=== PATIENT | male | born 1975 | race Caucasian/White ===

== ENCOUNTER 2024-07-11 10:55 | Inpatient (IN) | payer OTHER, SELFPAY ==
[~2024-07-11 10:55] MED LIST: Iopamidol 370 76% 100 ML VIAL ONE
[2024-07-11] MEDS ORDERED: NOREPINEPHRINE 8 MG/250 ML-D5W 250 ML ONE (11:02)
[2024-07-11] MEDS ORDERED: Ondansetron PF 4 MG/2 ML Vial ONE (11:35)
[2024-07-11] MEDS ORDERED: Morphine 4 MG/ML VIAL ONE (11:35)
[2024-07-11] MEDS ORDERED: PHENYLEPHRINE-NS 100 MCG/ML 10 ML SYRINGE ONE (11:40)
[2024-07-11 11:50] LABS: #Basophils 0.03 10x3/uL (0.0-0.2); #Eosinophils Less than 0.03 10x3/uL (0.0-0.7); %Basophils 0.2 % (0.0-1.0); %Lymphocytes 13.3 % (21.0-51.0); %Monocytes 8.4 % (0.0-10.0); %Neutrophils 77.7 % (42.0-75.0); Hematocrit 38.7 % (42.0-52.0); Mean Corpuscular HGB CONC 33.6 g/dL (32.0-36.0); Mean Corpuscular Hemoglobin 29.3 pg (27.0-31.0); Mean Corpuscular Volume 87.4 fL (78.0-98.0); Mean Platelet Volume 9.6 fL (7.4-10.4); Platelet Count 266 10x3/uL (130-400); RBC Distribution Width 13.1 % (11.5-14.5); Red Blood Cell (RBC) Count 4.43 mill/uL (4.70-6.10)
[2024-07-11] MEDS ORDERED: Vasopressin 20 UNITS/ML VIAL ONE (11:59)
[2024-07-11] MEDS ORDERED: EPINEPHrine 1 MG/10 ML Abboject SYRINGE ONE (12:00)
[2024-07-11] MEDS ORDERED: Adenosine 6 mg (2 mL) VIAL ONE (12:06)
[2024-07-11 12:10] LABS: INR-International Normal Ratio 1.3; Prothrombin Time 16.1 sec (12.0-14.7)
[2024-07-11] MEDS ORDERED: Midazolam HCl 2 mg/2 ml Vial ONE (12:16)
[2024-07-11 12:25] LABS: ALT (SGPT) 110 U/L (8-55); AST (SGOT) 134 U/L (5-34); Albumin 3.2 g/dL (3.5-5.0); Alkaline Phosphatase 74 U/L (40-110); Anion Gap 17 mmol/L (10-20); BUN (Urea Nitrogen) 21 mg/dL (8.9-20.6); Bilirubin, Total 0.9 mg/dL (0.2-1.2); Calc. Creatinine Clearance 0 mL/min (70-130); Calcium 8.8 mg/dL (7.8-10.44); Carbon Dioxide 22 mmol/L (22-29); Chloride 102 mmol/L (98-107); Estimated GFR 58; Globulin 3.5 g/dL (2.4-3.5); Glucose 143 mg/dL (70-105); Lipase 58 U/L (8-78); Potassium 4.3 mmol/L (3.5-5.1); Protein, Total 6.7 g/dL (6.0-8.3); Sodium 137 mmol/L (136-145)
[2024-07-11] MEDS ORDERED: Rocuronium Bromide 10 MG/ML (10ML VIAL) ONE (12:25)
[2024-07-11] MEDS ORDERED: Etomidate 40 MG (20 mL) VIAL ONE (12:25)
[2024-07-11] MEDS ORDERED: fentaNYL 50 mcg/mL 1 mL Vial ONE (12:26)
[2024-07-11] MEDS ORDERED: Propofol 1,000 MG/100 ML VIAL IV ONE (12:37)
[2024-07-11 12:43] LABS: Troponin I 11.082 ng/mL (< 0.028)
[2024-07-11 12:53] LABS: PTT 124.7 sec (22.9-36.1)
[2024-07-11] MEDS ORDERED: Heparin 10,000 UNITS/ 10 ML VIAL ONE (12:57)
[2024-07-11] MEDS ORDERED: Nitroglycerin 50 MG/250 ML BOT 250 ML ONE (12:57)
[2024-07-11] MEDS ORDERED: TICAGRELOR 90 MG TABLET ONE (13:07)
[2024-07-11] MEDS ORDERED: Nitroglycerin 0.4 MG TAB (25 Tab Bottle) SL PRN (13:26)
[2024-07-11 13:58] LABS: Base Excess (BEa) -11.7 mEq/L (-2.0 to +3.0); CO2 Tension 28.5 mmHg (35.0-45.0); Carboxyhemoglobin (COHb) 0.6 gm% (0.0-3.0); Hematocrit-ABG 42 % (42.0-52.0); Hemoglobin (Hb) 14.4 g/dL (14.0-18.0); pH, Arterial 7.287 (7.35-7.45)
[2024-07-11 13:59] LABS: ALV-art Gradient 273.175 mmHg (0-20); Actual Bicarbonate (HCO3a) 13.3 mEq/L (22-28); Puncture Site Arterial Line
[2024-07-11] MEDS ORDERED: Acetaminophen 650 MG Suppository PR PRN (14:28)
[2024-07-11] MEDS ORDERED: Bisacodyl 10 MG SUPP PR PRN (14:28)
[2024-07-11] MEDS ORDERED: Bisacodyl 5 MG TAB PO PRN (14:28)
[2024-07-11] MEDS ORDERED: Senokot S 8.6-50 MG TAB PO PRN (14:28)
[2024-07-11] MEDS ORDERED: Verapamil 5 MG/2 ML VIAL ONE (14:58)
[2024-07-11] MEDS ORDERED: Ventilator Sedation Protocol 1 EACH FS SCH (15:00)
[2024-07-11] MEDS ORDERED: Propofol BOLUS 1,000 MG/100 ML VIAL IV PRN (15:00)
[2024-07-11] MEDS ORDERED: Heparin 5,000 UNITS/ML VIAL SC SCH (15:00)
[2024-07-11 15:02] LABS: Hematocrit 43.2 % (42.0-52.0); Hemoglobin 14.5 g/dL (14.0-18.0); Platelet Count 262 10x3/uL (130-400)
[2024-07-11 15:02] LABS: #Basophils 0.03 10x3/uL (0.0-0.2); #Eosinophils Less than 0.03 10x3/uL (0.0-0.7); %Basophils 0.2 % (0.0-1.0); %Lymphocytes 8.9 % (21.0-51.0); %Monocytes 6.7 % (0.0-10.0); %Neutrophils 83.6 % (42.0-75.0); Hematocrit 43.3 % (42.0-52.0); Hemoglobin 14.1 g/dL (14.0-18.0); Mean Corpuscular HGB CONC 32.6 g/dL (32.0-36.0); Mean Corpuscular Volume 88.9 fL (78.0-98.0); Mean Platelet Volume 9.6 fL (7.4-10.4); Platelet Count 260 10x3/uL (130-400); RBC Distribution Width 13.2 % (11.5-14.5); Red Blood Cell (RBC) Count 4.87 mill/uL (4.70-6.10)
[2024-07-11] MEDS: Sodium Bicarbonate 150 MEQ in Dextrose 5% in Water 1,000 ML IV SCH (15:05)
[2024-07-11] MEDS: Sodium Bicarb 50 mEq/50 ML VIAL IVP SCH (15:05)
[2024-07-11] MEDS ORDERED: Fentanyl BOLUS 250 ML IVPB PRN (15:15)
[2024-07-11] MEDS ORDERED: DISCONTINUE PREVIOUS NARCOTIC PAIN MEDICATIONS AND BENZODIAZEPINES FS SCH (15:15)
[2024-07-11] MEDS ORDERED: Morphine 2 MG/ML VIAL SLOW IVP PRN (15:15)
[2024-07-11] MEDS ORDERED: Lorazepam 2 MG/ML VIAL SLOW IVP PRN (15:15)
[2024-07-11 15:20] LABS: INR-International Normal Ratio 1.4; Prothrombin Time 17.1 sec (12.0-14.7)
[2024-07-11 15:21] LABS: PTT 70.3 sec (22.9-36.1)
[2024-07-11 15:28] LABS: Lactic Acid 4.82 mmol/L (0.5-2.2)
[2024-07-11 15:38] VITALS: BMI 28.3
[2024-07-11 15:57] LABS: ALT (SGPT) 205 U/L (8-55); AST (SGOT) 263 U/L (5-34); Albumin 2.9 g/dL (3.5-5.0); Alkaline Phosphatase 75 U/L (40-110); Anion Gap 17 mmol/L (10-20); BUN (Urea Nitrogen) 22 mg/dL (8.9-20.6); Bilirubin, Total 1.5 mg/dL (0.2-1.2); Calc. Creatinine Clearance 69 mL/min (70-130); Carbon Dioxide 19 mmol/L (22-29); Chloride 102 mmol/L (98-107); Estimated GFR 55; Globulin 3.4 g/dL (2.4-3.5); Glucose 218 mg/dL (70-105); Magnesium 2.2 mg/dL (1.6-2.6); Potassium 6.9 mmol/L (3.5-5.1); Protein, Total 6.3 g/dL (6.0-8.3); Sodium 131 mmol/L (136-145)
[2024-07-11] MEDS: Sodium Bicarb 50 MEQ/50 ML Abboject 8.4% SYRINGE IVP SCH (16:54)
[2024-07-11 16:58] LABS: Troponin I 26.669 ng/mL (< 0.028)
[2024-07-11] MEDS: Heparin 25,000 units/D5W 500 ML IVPB SCH (17:01)
[2024-07-11 17:19] LABS: Potassium 6.2 mmol/L (3.5-5.1)
[2024-07-11 17:20] LABS: Troponin I 37.997 ng/mL (< 0.028)
[2024-07-11] MEDS: Acetaminophen 325 MG TAB PO PRN (17:21)
[2024-07-11 17:23] VITALS: TEMP 101.3
[2024-07-11] MEDS: Fentanyl CADD 100 ML IV SCH (17:25)
[2024-07-11] MEDS: CALCIUM GLUC 1 GM/NS 50 ML 1 GM in Premix 1 BAG IVPB SCH (17:51)
[2024-07-11] MEDS: LOKELMA 10 GM PACKET PER TUBE SCH (18:02)
[2024-07-11] MEDS: Dextrose 50% Abboject 50 ML SYRINGE SLOW IVP PRN (18:02)
[2024-07-11] MEDS: Insulin Regular, Human 100 UNIT/ML 10 ML VIAL IVP SCH (18:06)
[2024-07-11] MEDS: Metoprolol Tartrate 25 MG TAB PO SCH (19:43)
[2024-07-11] MEDS: NOREPINEPHRINE 8 MG/250 ML-D5W 250 ML IVPB SCH (19:57)
[2024-07-11] MEDS: Propofol 1,000 MG/100 ML VIAL IV PRN (20:00)
[2024-07-11] MEDS ORDERED: FLU (Fluarix Triv) TS24-25(6MOS UP)/PF 45 MCG/0.5 ML Syringe IM ONE (20:00)
[2024-07-11] MEDS: Atorvastatin Calcium 40 MG TAB PO SCH (20:00)
[2024-07-11] MEDS: TICAGRELOR 90 MG TABLET PO SCH (20:01)
[2024-07-11] MEDS: Famotidine/PF 20 mg/2ml Vial SLOW IVP SCH (20:01)
[2024-07-11 20:11] LABS: Anion Gap 18 mmol/L (10-20); BUN (Urea Nitrogen) 27 mg/dL (8.9-20.6); Calc. Creatinine Clearance 69 mL/min (70-130); Calcium 8.1 mg/dL (7.8-10.44); Carbon Dioxide 16 mmol/L (22-29); Chloride 104 mmol/L (98-107); Estimated GFR 55; Glucose 306 mg/dL (70-105); Potassium 4.7 mmol/L (3.5-5.1); Sodium 133 mmol/L (136-145)
[2024-07-11] MEDS ORDERED: Glucagon 1 MG/ML KIT IM PRN (21:13)
[2024-07-11] MEDS ORDERED: Insulin Lispro 100 UNIT/ML 10 ML VIAL SC PRN ×2 (21:13)
[2024-07-11] MEDS ORDERED: Ipratropium/Albuterol 3 ML NEB NEB PRN (21:13)
[2024-07-11] MEDS ORDERED: Sodium Bicarbonate 150 MEQ in Sterile Water 1,000 ML IVP SCH (21:30)
[2024-07-11] MEDS: Ipratropium/Albuterol 3 ML NEB NEB SCH (21:49)
[2024-07-11] MEDS: Sodium Bicarbonate 150 MEQ in Sterile Water 1,000 ML IV SCH (22:28)
[2024-07-11] MEDS: Piperacillin/Tazobactam 3.375 GM in Sodium Chloride 0.9% 100 ML IVPB SCH ×2 (22:28→23:37)
[2024-07-11 23:53] LABS: Bacteria/HPF None Seen HPF (None Seen); Bilirubin Negative (Negative); Blood, Urine 2+ (Negative); CAUTI Indications for Culture Fever or rigors; Clarity Turbid (Clear); Glucose, Urine (Dipstick) Normal (Negative); Ketone, Urine 10 mg/dL (Negative); Leukocyte Negative Leu/uL (Negative); Nitrite Negative (Negative); Protein, Urine (Dipstick) 100 mg/dL (Neg-Trace); Squamous Epithelial None Seen HPF (0-3); Urobilinogen 3 mg/dL (Less than 2); pH, Urine 5.5 (5.0-9.0)
[2024-07-11 23:58] LABS: Urine Culture Reflex No No
[2024-07-12] LABS: Amphetamine Not Detected (NotDetected); Barbiturates Screen Not Detected (NotDetected); Benzodiazepine Screen Not Detected (NotDetected); Cocaine Metabolite Screen Not Detected (NotDetected); Methadone Not Detected (NotDetected); Methamphetamine Not Detected (NotDetected); Opiate Screen Detected (NotDetected); Oxycodone Screen Detected (NotDetected); Phencyclidine (PCP) Not Detected (NotDetected); THC/Cannabinoid Screen Not Detected (NotDetected); Tricyclic Screen Detected (NotDetected)
[2024-07-12 00:03] LABS: Specific Gravity, Urine 1.055 (1.002-1.036)
[2024-07-12] MEDS: Heparin 10,000 UNITS/ 10 ML VIAL SLOW IVP SCH (00:15)
[2024-07-12] MEDS ORDERED: Ipratropium/Albuterol 3 ML NEB NEB SCH (01:00)
[2024-07-12] MEDS: Piperacillin/Tazobactam 3.375 GM in Sodium Chloride 0.9% 100 ML IVPB SCH (01:05)
[2024-07-12] MEDS: Vasopressin In 0.9 % NaCl 40 UNIT in Premix 1 BAG IV SCH (02:54)
[2024-07-12 04:47] LABS: Hematocrit 41.6 % (42.0-52.0); Hemoglobin 14.4 g/dL (14.0-18.0); Mean Corpuscular HGB CONC 34.6 g/dL (32.0-36.0); Mean Corpuscular Hemoglobin 29.3 pg (27.0-31.0); Mean Corpuscular Volume 84.6 fL (78.0-98.0); Mean Platelet Volume 10.2 fL (7.4-10.4); Platelet Count 205 10x3/uL (130-400); RBC Distribution Width 13.2 % (11.5-14.5); Red Blood Cell (RBC) Count 4.92 mill/uL (4.70-6.10)
[2024-07-12 05:03] LABS: Lactic Acid 9.83 mmol/L (0.5-2.2)
[2024-07-12 05:07] LABS: Hemoglobin A1c 5.8 % (4.0-6.0)
[2024-07-12 05:08] LABS: Albumin 2.5 g/dL (3.5-5.0); Alkaline Phosphatase 85 U/L (40-110); Anion Gap 25 mmol/L (10-20); BUN (Urea Nitrogen) 30 mg/dL (8.9-20.6); Bilirubin, Total 2.1 mg/dL (0.2-1.2); Calc. Creatinine Clearance 43 mL/min (70-130); Calcium 7.9 mg/dL (7.8-10.44); Carbon Dioxide 13 mmol/L (22-29); Cardiac Risk 13.7 (Less than 4.5); Chloride 100 mmol/L (98-107); Cholesterol 151 mg/dl (< 200 Desired); Estimated GFR 31; Globulin 3.6 g/dL (2.4-3.5); Glucose 123 mg/dL (70-105); HDL Cholesterol 11 mg/dL (>60 Neg Risk); LDL Cholesterol, Calculated 106 mg/dL; Magnesium 2.5 mg/dL (1.6-2.6); Potassium 5.4 mmol/L (3.5-5.1); Protein, Total 6.1 g/dL (6.0-8.3); Sodium 133 mmol/L (136-145); Triglycerides 171 mg/dL (Less than 150)
[2024-07-12 05:28] LABS: ALT (SGPT) 8309 U/L (8-55)
[2024-07-12] MEDS ORDERED: Vancomycin 1.75 GM in Sodium Chloride 0.9% 500 ML IVPB SCH (05:30)
[2024-07-12 05:33] LABS: AST (SGOT) Greater than 4202 U/L (5-34)
[2024-07-12] MEDS: Vancomycin (BATCH) 1.75 GM in Premix 1 BAG IVPB SCH (05:39)
[2024-07-12 05:42] LABS: Base Excess (BEa) -10.3 mEq/L (-2.0 to +3.0); CO2 Tension 25.2 mmHg (35.0-45.0); Calcium, Ionized (arterial) 0.99 mmol/L (1.12-1.30); Carboxyhemoglobin (COHb) 0.3 gm% (0.0-3.0); Hematocrit-ABG 44 % (42.0-52.0); O2 Tension (PaO2), arterial 102.2 mmHg (80.0-100.0); Potassium - ABG Lab 5.23 mmol/L (3.70-5.30); pH, Arterial 7.343 (7.35-7.45)
[2024-07-12] MEDS: Albumin 25% 25 GM (100 mL) BOT IVPB SCH (05:42)
[2024-07-12 05:43] LABS: Actual Bicarbonate (HCO3a) 13.4 mEq/L (22-28); Puncture Site LINE
[2024-07-12] MEDS: methylPREDNISolone Sod Succ/PF 125 MG/2 ML VIAL IVP SCH (05:59)
[2024-07-12] MEDS: Meropenem 1 GM in Sodium Chloride 0.9% 100 ML IVPB SCH ×3 (06:09→13:49)
[2024-07-12 06:48] LABS: Band 6 % (5-11); Lymphocytes 4 % (21-51); Monocytes 5 % (0-10); Neutrophil 74 % (42-75); Platelet Adequacy Comment Platelets Normal; Polychromasia SLIGHT = 2-3 cells HPF (0-2); Reactive Lymphocytes 11 % (0-10); Smudge Cells 33.3 %
[2024-07-12] MEDS: Sodium Bicarbonate 150 MEQ in Sterile Water 1,000 ML IV SCH (07:05)
[2024-07-12 07:41] LABS: Anion Gap 30 mmol/L (10-20); BUN (Urea Nitrogen) 31 mg/dL (8.9-20.6); Calc. Creatinine Clearance 43 mL/min (70-130); Calcium 7.6 mg/dL (7.8-10.44); Carbon Dioxide 11 mmol/L (22-29); Chloride 99 mmol/L (98-107); Estimated GFR 29; Glucose 120 mg/dL (70-105); Potassium 5.4 mmol/L (3.5-5.1); Sodium 135 mmol/L (136-145)
[2024-07-12] MEDS: Lisinopril 2.5 MG TAB PO SCH (08:31)
[2024-07-12 08:32] VITALS: BP 116/60
[2024-07-12] MEDS: TICAGRELOR 90 MG TABLET PER TUBE SCH (08:39)
[2024-07-12] MEDS: Aspirin Chewable 81 MG TAB PER TUBE SCH (08:51)
[2024-07-12] MEDS: Lisinopril 2.5 MG TAB PER TUBE SCH (08:52)
[2024-07-12] MEDS ORDERED: Aspirin 81 mg Enteric Coated Tablet PO SCH (09:00)
[2024-07-12] MEDS ORDERED: DOBUTamine 500 mg/250 ml 250 ML IVPB SCH (09:45)
[2024-07-12] MEDS: Sodium Chloride 0.9% 1,000 ML IV SCH (10:32)
[2024-07-12 11:29] LABS: Troponin I 183.725 ng/mL (< 0.028)
[2024-07-12] MEDS: Sodium Chloride 0.9% 500 ML IV SCH (13:51)
[2024-07-12 15:15] LABS: Critical Call Chem Troponin I DECREASED; Troponin I 121.183 ng/mL (< 0.028)
[2024-07-12 15:21] LABS: Base Excess -15.6 mEq/L (-2.0 to +3.0); Calcium, Ionized (venous) 0.91 mmol/L (1.16-1.32); Chloride (VBG) 92 mmol/L (98-106); Hematocrit-VBG 37 % (42.0-52.0); Hemoglobin (Hb) 12.7 g/dL (13.1-17.2); Potassium (VBG) 4.71 mmol/L (3.70-5.30); Sodium 134 mmol/L (133-146)
[2024-07-12 15:23] LABS: Base Excess (BEa) -14.5 mEq/L (-2.0 to +3.0); Calcium, Ionized (arterial) 0.86 mmol/L (1.12-1.30); Carboxyhemoglobin (COHb) 0.3 gm% (0.0-3.0); Hematocrit-ABG 38 % (42.0-52.0); O2 Tension (PaO2), arterial 114.4 mmHg (80.0-100.0); Potassium - ABG Lab 4.79 mmol/L (3.70-5.30); pH, Arterial 7.258 (7.35-7.45)
[2024-07-12 15:24] LABS: Actual Bicarbonate (HCO3v) 13.4 mEq/L (22-28); pH (venous) 7.105 (7.32-7.43)
[2024-07-12 15:25] LABS: Actual Bicarbonate (HCO3a) 10.8 mEq/L (22-28); CO2 Tension 24.8 mmHg (35.0-45.0); Puncture Site Arterial Line
[2024-07-12] MEDS: DOBUTamine 500 mg/250 ml 250 ML ONE (15:40)
[2024-07-12] MEDS: Sodium Bicarb 50 MEQ/50 ML Abboject 8.4% SYRINGE ONE (15:49)
[2024-07-12] MEDS: Sodium Bicarb 50 mEq/50 ML VIAL IVP SCH (16:08)
[2024-07-12] MEDS: Calcium Gluconate 4.6 MEQ in Sodium Chloride 0.9% 100 ML IVPB SCH (16:12)
[2024-07-12 16:39] LABS: Albumin 2.7 g/dL (3.5-5.0); Alkaline Phosphatase 66 U/L (40-110); Anion Gap 33 mmol/L (10-20); BUN (Urea Nitrogen) 34 mg/dL (8.9-20.6); Bilirubin, Total 2.8 mg/dL (0.2-1.2); Calc. Creatinine Clearance 36 mL/min (70-130); Calcium 6.2 mg/dL (7.8-10.44); Carbon Dioxide 26 mmol/L (22-29); Chloride 95 mmol/L (98-107); Estimated GFR 24; Globulin 2.2 g/dL (2.4-3.5); Glucose 103 mg/dL (70-105); Lactic Acid 15.57 mmol/L (0.5-2.2); Potassium 4.5 mmol/L (3.5-5.1); Protein, Total 4.9 g/dL (6.0-8.3); Sodium 149 mmol/L (136-145)
[2024-07-12 16:47] LABS: ALT (SGPT) 8206 U/L (8-55)
[2024-07-12] MEDS: Calcium Chloride 1 GM/10 ML Abboject SYRINGE ONE (16:50)
[2024-07-12] MEDS: Calcium Chloride 1 GM/10 ML Abboject SYRINGE IVP SCH (16:52)
[2024-07-12 18:13] LABS: Base Excess (BEa) -13.6 mEq/L (-2.0 to +3.0); CO2 Tension 21.6 mmHg (35.0-45.0); Calcium, Ionized (arterial) 0.86 mmol/L (1.12-1.30); Carboxyhemoglobin (COHb) 0.3 gm% (0.0-3.0); Hematocrit-ABG 36 % (42.0-52.0); Hemoglobin (Hb) 12.1 g/dL (14.0-18.0); O2 Tension (PaO2), arterial 107.8 mmHg (80.0-100.0); Potassium - ABG Lab 4.12 mmol/L (3.70-5.30)
[2024-07-12 18:14] LABS: Actual Bicarbonate (HCO3a) 10.6 mEq/L (22-28); Puncture Site Arterial Line
[2024-07-12 18:15] LABS: Base Excess -15.1 mEq/L (-2.0 to +3.0); Calcium, Ionized (venous) 0.84 mmol/L (1.16-1.32); Chloride (VBG) 94 mmol/L (98-106); Hematocrit-VBG 31 % (42.0-52.0); Hemoglobin (Hb) 10.6 g/dL (13.1-17.2); Potassium (VBG) 3.78 mmol/L (3.70-5.30); Sodium 133 mmol/L (133-146)
[2024-07-12 18:16] LABS: Actual Bicarbonate (HCO3v) 12.6 mEq/L (22-28); pH (venous) 7.159 (7.32-7.43)
[2024-07-12 19:06] LABS: Calcium 7.8 mg/dL (7.8-10.44)
[2024-07-12 19:28] LABS: Lactic Acid 16.73 mmol/L (0.5-2.2)
[2024-07-12] MEDS ORDERED: Vancomycin 1 GM in Sodium Chloride 0.9% 250 ML 250 ML IVPB SCH (21:00)
[2024-07-12] MEDS ORDERED: Vancomycin 1 GM in Premix 1 BAG IVPB SCH (21:00)
[2024-07-12] MEDS ORDERED: Atorvastatin Calcium 40 MG TAB PER TUBE SCH (21:00)
[2024-07-13] MEDS ORDERED: Famotidine/PF 20 mg/2ml Vial SLOW IVP SCH (09:00)
== END 2024-07-12 19:15 | disposition short-term general hospital (02) | DRG 321 ==
LOC: ERS 10:55 → CCL 11:10 → CCU 13:46
PROVIDERS: ADMIT Internal Medicine Cardiovascular Disease; ATTEND Family Medicine
PROC: 027034Z Dilation of Coronary Artery, One Artery with Drug-eluting Intraluminal Device, Percutaneous Approach (ICD-10-PCS; principal; 2024-07-11)
PROC: 4A023N7 Measurement of Cardiac Sampling and Pressure, Left Heart, Percutaneous Approach (ICD-10-PCS; 2024-07-11)
PROC: 3E033XZ Introduction of Vasopressor into Peripheral Vein, Percutaneous Approach (ICD-10-PCS; 2024-07-11)
PROC: 3E033GC Introduction of Other Therapeutic Substance into Peripheral Vein, Percutaneous Approach (ICD-10-PCS; 2024-07-11)
PROC: 30233J1 Transfusion of Nonautologous Serum Albumin into Peripheral Vein, Percutaneous Approach (ICD-10-PCS; 2024-07-11)
PROC: 5A1945Z Respiratory Ventilation, 24-96 Consecutive Hours (ICD-10-PCS; 2024-07-11)
PROC: 0BH17EZ Insertion of Endotracheal Airway into Trachea, Via Natural or Artificial Opening (ICD-10-PCS; 2024-07-11)
DX: I21.3 ST elevation (STEMI) myocardial infarction of unspecified site (principal); J69.0 Pneumonitis due to inhalation of food and vomit; J96.01 Acute respiratory failure with hypoxia; K76.7 Hepatorenal syndrome; R57.0 Cardiogenic shock; K72.00 Acute and subacute hepatic failure without coma; N17.9 Acute kidney failure, unspecified; E87.20 Acidosis, unspecified; I25.3 Aneurysm of heart; Z66 Do not resuscitate; Z51.5 Encounter for palliative care; M48.00 Spinal stenosis, site unspecified; E87.5 Hyperkalemia; K81.9 Cholecystitis, unspecified; Z87.891 Personal history of nicotine dependence
CPT/HCPCS: 36415; 36416; 36556; 71045; 76705; 80053; 80061; 80306; 81001; 82805; 83036; 83605; 83690; 83735; 83880; 84100; 84145; 84484; 85025; 85347; 85610; 85730; 87040; 92941; 93005; 93010; 93306; 93458; 94002; 94003; 94640; 94760; 96374; 96375; A4217; C1725; C1726; C1769; C1874; C1887; C1894; C9606; G0278; J0153; J0171; J0612; J0613; J1250; J1644; J1815; J2185; J2250; J2270; J2405; J2543; J2704; J2919; J3010; J3370; J3490; J7030; J7070; J7620; J7999; P9047; Q9967